=== PATIENT | female | born 1950 | race Caucasian/White ===

== ENCOUNTER 2017-06-17 07:42 | Outpatient (CLI) | payer MEDICARE | END 2017-06-17 07:43 | disposition home or self-care (01) | LOC: BICULT 07:42 | PROVIDERS: ATTEND Internal Medicine | DX: Z78.0 Asymptomatic menopausal state (principal); K76.0 Fatty (change of) liver, not elsewhere classified; R94.5 Abnormal results of liver function studies; R16.0 Hepatomegaly, not elsewhere classified | CPT/HCPCS: 76700; 77080 ==

== ENCOUNTER 2017-09-03 20:03 | Emergency (ER) | payer MEDICARE ==
[2017-09-03 20:44] LABS: #Basophils 0.1 thou/uL (0.0-0.2); #Eosinphils 0.1 thou/uL (0.0-0.7); #Lymphocytes 1.4 thou/uL (1.20-3.40); #Monocytes 0.8 thou/uL (0.11-0.59); #Neutrophils 10.4 thou/uL (1.40-6.50); %Basophils 0.5 % (0.0-1.0); %Eosinophils 1.1 % (0.0-10.0); %Lymphocytes 11.1 % (21.0-51.0); %Monocytes 6.4 % (0.0-10.0); %Neutrophils 80.8 % (42.0-75.0); Hemoglobin 13.9 g/dL (12.0-16.0); Mean Corpuscular HGB CONC 34.2 g/dL (32.0-36.0); Mean Corpuscular Hemoglobin 31.6 pg (27.0-31.0); Mean Corpuscular Volume 92.5 fl (81.0-99.0); Mean Platelet Volume 7.5 fL (7.4-10.4); Platelet Count 344 thou/uL (130-400); Red Blood Cell (RBC) Count 4.38 mill/uL (4.20-5.40); White Blood Cell (WBC) Count 12.9 thou/uL (4.8-10.8)
[2017-09-03] MEDS ORDERED: Ondansetron ODT 4 MG TAB ONE (21:12)
[2017-09-03 21:59] LABS: Albumin 4.2 g/dL (3.4-4.8)
[2017-09-03 22:01] LABS: Calcium 9.3 mg/dL (7.8-10.44); Chloride 100 mmol/L (98-107); Sodium 137 mmol/L (136-145)
[2017-09-03 22:02] LABS: Globulin 2.6 g/dL (2.4-3.5); Glucose 250 mg/dL (80-115); Protein, Total 6.8 g/dL (6.0-8.3)
[2017-09-03 22:03] LABS: Anion Gap 15 mmol/L (10-20); Bilirubin, Total 0.7 mg/dL (0.2-1.2); Carbon Dioxide 26 mmol/L (23-31)
[2017-09-03 22:05] LABS: Alkaline Phosphatase 96 U/L (40-150); Calc. Creatinine Clearance 0 mL/min (70-130); Estimated GFR-MDRD 65
[2017-09-03 22:06] LABS: BUN (Urea Nitrogen) 11 mg/dL (9.8-20.1)
[2017-09-03 22:07] LABS: AST (SGOT) 23 U/L (5-34)
[2017-09-03 22:08] LABS: ALT (SGPT) 31 U/L (8-55); Lipase 16 U/L (8-78)
[2017-09-03] MEDS ORDERED: Metoclopramide HCl 10 MG/2 ML VIAL ONE (23:23)
[2017-09-03] MEDS ORDERED: diphenhydrAMINE 50 MG/ML VIAL ONE (23:23)
== END 2017-09-04 00:04 | disposition home or self-care (01) ==
LOC: ERS 20:03
DX: R11.2 Nausea with vomiting, unspecified (principal); R19.7 Diarrhea, unspecified; E11.9 Type 2 diabetes mellitus without complications; I10 Essential (primary) hypertension; F41.9 Anxiety disorder, unspecified; Z79.84 Long term (current) use of oral hypoglycemic drugs; Z79.899 Other long term (current) drug therapy
CPT/HCPCS: 36415; 80053; 83690; 85025; 96361; 96365; 96375; J1200; J2765; Q0162

== ENCOUNTER 2017-11-21 08:42 | Outpatient (CLI) | payer MEDICARE ==
[2017-11-21 09:24] LABS: Estimated GFR-MDRD - POC Greater than 90
[2017-11-21] MEDS ORDERED: Gadobenate Dimeglumine 529 MG/1 ML (20ML VIAL) ONE (13:13)
== END 2017-11-21 08:43 | disposition home or self-care (01) ==
LOC: BICMRI 08:42
PROVIDERS: ATTEND Internal Medicine Gastroenterology
DX: Z12.11 Encounter for screening for malignant neoplasm of colon (principal); K76.0 Fatty (change of) liver, not elsewhere classified; R16.0 Hepatomegaly, not elsewhere classified; R94.5 Abnormal results of liver function studies; H26.9 Unspecified cataract
CPT/HCPCS: 36415; 74183; 80053; A9579

== ENCOUNTER 2023-02-06 16:04 | Outpatient (CLI) | payer MEDICARE | END 2023-02-06 16:05 | disposition home or self-care (01) | LOC: SCSRAD 16:04 | PROVIDERS: ATTEND Nurse Practitioner Family | DX: M79.671 Pain in right foot (principal) ==